=== PATIENT | female | born 1980 | race Caucasian/White ===

== ENCOUNTER 2022-08-22 12:52 | Outpatient (CLI) | payer OTHER, SELFPAY ==
[2022-08-22 21:48] LABS: Chloride* 104 mmol/L (96-114)
[2022-08-22 21:49] LABS: Potassium* 4.5 mmol/L (3.6-5.1); Sodium* 138 mmol/L (135-149)
[2022-08-22 21:51] LABS: Creatinine* 0.6 mg/dL (0.5-1.5); Estimated Glomerular Filt Rate 114 ml/min
[2022-08-22 21:52] LABS: Blood Urea Nitrogen* 11 mg/dL (5-24); Calcium* 9.1 mg/dL (8.4-10.6); Carbon Dioxide* 27 mmol/L (20-32); Glucose* 88 mg/dL (60-115)
== END 2022-08-22 12:53 | disposition home or self-care (01) ==
LOC: LKVREF 12:53
PROVIDERS: Visit Provider Emergency Medicine
DX: I10 Essential (primary) hypertension (principal)
CPT/HCPCS: 80048

== ENCOUNTER 2023-02-28 10:47 | Outpatient (CLI) | payer OTHER, SELFPAY | END 2023-02-28 10:48 | disposition home or self-care (01) | LOC: LKVREF 10:49 | PROVIDERS: PCP Emergency Medicine; Visit Provider Emergency Medicine | DX: I10 Essential (primary) hypertension (principal); R00.2 Palpitations | CPT/HCPCS: 84443; 85027 ==

== ENCOUNTER 2023-04-17 12:39 | Outpatient (CLI) | payer OTHER, SELFPAY | END 2023-04-17 12:40 | disposition home or self-care (01) | LOC: NFLDREF 12:40 | PROVIDERS: PCP Emergency Medicine; Visit Provider Registered Nurse | DX: Z01.419 Encounter for gynecological examination (general) (routine) without abnormal findings (principal); D64.9 Anemia, unspecified; E04.1 Nontoxic single thyroid nodule; I10 Essential (primary) hypertension; Z13.6 Encounter for screening for cardiovascular disorders | CPT/HCPCS: 80061; 82607; 82728; 83540; 83550 ==

== ENCOUNTER 2023-04-24 14:30 | Outpatient (CLI) | payer OTHER, SELFPAY | END 2023-04-24 14:31 | disposition home or self-care (01) | PROVIDERS: PCP Emergency Medicine; Visit Provider Emergency Medicine | DX: Z01.419 Encounter for gynecological examination (general) (routine) without abnormal findings (principal); D50.9 Iron deficiency anemia, unspecified; D72.819 Decreased white blood cell count, unspecified; N92.0 Excessive and frequent menstruation with regular cycle | CPT/HCPCS: 80048; 85045 ==

== ENCOUNTER 2023-06-27 10:47 | Outpatient (CLI) | payer OTHER, SELFPAY ==
--- NOTE | 2023-06-27 11:00 | CRLHL7_ITS ---
For Patients: As a result of the Century Cures Act, medical imaging exams and procedure reports are released immediately into your electronic medical record. You may view this report before your referring provider. If you have questions, please contact your health care provider. CLINICAL HISTORY: Irregular cycles TECHNIQUE: Real time, isabel scale images were acquired of the pelvis using a transabdominal and transvaginal approach. Color Doppler analysis was performed of the ovaries. FINDINGS: Uterus measures 10.4 x 3.9 x 5.8 centimeters. 0.7 centimeter endometrium. There is fluid in the cervix and cystic changes adjacent to the section scar. Endometrium measures 0.7 cm. Ovaries are unremarkable. Right ovary measures 1.9 x 1.3 x 1. Left ovary measures 4.7 x 2.4 x 2.2 centimeters. Anechoic left ovarian cyst measuring 2.2 centimeters. IMPRESSION: 1. 0.7 centimeter endometrium. 2. Endocervical fluid and cystic change next to the scar. Dictated by Lawanda Jimenez MD @ 06/29/2023 5:48:00 AM (Electronically Signed)
== END 2023-06-27 10:48 | disposition home or self-care (01) ==
LOC: US 10:48
PROVIDERS: PCP Emergency Medicine; Visit Provider Emergency Medicine
DX: N92.6 Irregular menstruation, unspecified (principal); D50.9 Iron deficiency anemia, unspecified; N92.0 Excessive and frequent menstruation with regular cycle
CPT/HCPCS: 76830; 76856

== ENCOUNTER 2023-07-23 09:55 | Outpatient (CLI) | payer OTHER, SELFPAY ==
--- NOTE | 2023-07-23 10:15 | CRLHL7_ITS ---
For Patients: As a result of the Century Cures Act, medical imaging exams and procedure reports are released immediately into your electronic medical record. You may view this report before your referring provider. If you have questions, please contact your health care provider. BILATERAL SCREENING MAMMOGRAM WITH COMPUTER-AIDED DETECTION AND TOMOSYNTHESIS TECHNIQUE: CC and MLO views were obtained. These mammographic images have been obtained using full-field digital technique. These mammographic images were interpreted with the benefit of computer-aided detection. Breast Tomosynthesis was used in this interpretation. COMPARISON FILM: 11/15/17, 08/16/21 (left) FINDINGS: The breasts are heterogeneously dense, which may obscure small masses IMPRESSION: There is no radiographic evidence for malignancy. ASSESSMENT: BI-RADS Category 1: Negative RECOMMENDATION: Routine screening mammogram in 1 year. A lay language report of this examination will be provided to the patient. Jerdo Kent M.D. Diagnostic Radiologist [email or web address] Transcribed: 4:53 p.mPaola roy/Dictated by: Jerod Kent MD @ 07/25/2023 11:10:00 AM (Electronically Signed)
== END 2023-07-23 09:56 | disposition home or self-care (01) ==
LOC: MAMMO 09:55
PROVIDERS: PCP Emergency Medicine; Visit Provider Emergency Medicine
DX: Z12.31 Encounter for screening mammogram for malignant neoplasm of breast (principal); R92.2 Inconclusive mammogram
CPT/HCPCS: 77063; 77067

== ENCOUNTER 2023-08-29 10:14 | Outpatient (CLI) | payer OTHER, SELFPAY | END 2023-08-29 10:15 | disposition home or self-care (01) | LOC: NFLDREF 08-30 07:05 | PROVIDERS: PCP Emergency Medicine; Referring Provider Emergency Medicine; Visit Provider Emergency Medicine | DX: D50.9 Iron deficiency anemia, unspecified (principal) | CPT/HCPCS: 82728 ==

== ENCOUNTER 2024-05-02 08:36 | Outpatient (CLI) | payer OTHER, SELFPAY | END 2024-05-02 08:37 | disposition home or self-care (01) | LOC: NFLDREF 05-04 14:47 | PROVIDERS: PCP Emergency Medicine; Referring Provider Emergency Medicine; Visit Provider Emergency Medicine | DX: Z00.00 Encounter for general adult medical examination without abnormal findings (principal); I10 Essential (primary) hypertension; D72.819 Decreased white blood cell count, unspecified; D64.9 Anemia, unspecified; E04.1 Nontoxic single thyroid nodule; N92.0 Excessive and frequent menstruation with regular cycle; E78.5 Hyperlipidemia, unspecified | CPT/HCPCS: 80048; 80061; 82728 ==

== ENCOUNTER 2024-07-23 09:56 | Outpatient (CLI) | payer OTHER, SELFPAY | END 2024-07-23 09:57 | disposition home or self-care (01) | LOC: LKVREF 09:56 | PROVIDERS: PCP Emergency Medicine; Visit Provider Emergency Medicine | DX: I10 Essential (primary) hypertension (principal) | CPT/HCPCS: 80048 ==

== ENCOUNTER 2025-02-12 11:42 | Outpatient (CLI) | payer OTHER, SELFPAY | END 2025-02-12 11:43 | disposition home or self-care (01) | PROVIDERS: PCP Family Medicine; Visit Provider Family Medicine | DX: D50.8 Other iron deficiency anemias (principal) | CPT/HCPCS: 82728 ==